=== PATIENT | female | born 1955 ===

== ENCOUNTER 2022-09-06 10:15 | Outpatient (RCR) | payer OTHER, SELFPAY ==
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
[2022-08-16 10:42] VITALS: BP 128/60; PULSE 60; TEMP 37.1
[2022-08-16 10:46] VITALS: BMI 26.9
--- NOTE | 2022-08-16 11:25 | PC.ADMIT ---
Patient self referred to [facility] d/t increased depression, anxiety, and PTSD sxs. Patient reports she heard about the program from a friend. Patient feeling overwhelmed about taking on the care of her elderly mother. Reports a history of substance use. Reports last use ETOH 10 years ago and Opiates 4-5 years ago. Patient is on Suboxone which she takes daily. Patient also reports using a friends Ativan daily taking 0.5-1 mg. Medication education provided to patient regarding use of her friends medication. Patient is alert and oriented x4. Calm and cooperative. Presented with depressed mood and affect. Denied Si or thoughts to harm herself. Patient given a copy of her safety plan if needed and I reviewed the plan with her. Medication reconciled with patient and patient's pharmacy.
[2022-08-16 12:50] LABS: Amphetamine Screen Urine Not Detected (Not Detect); Barbiturates, Urine Not Detected (Not Detect); Benzodiazepines Screen Urine POSITIVE (Not Detect); Cannabinoid Screen Urine Not Detected (Not Detect); Cocaine Screen Urine Not Detected (Not Detect); Fentanyl, urine Not Detected (Not Detect); Opiate Screen Urine Not Detected (Not Detect); Phencyclidine Screen Urine Not Detected (Not Detect)
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
--- NOTE | 2022-08-20 08:10 | HO.PHP ---
The clients case was reviewed and opened in treatment team
--- NOTE | 2022-08-24 10:43 | P.PNPSP_ITS ---
Subjective Subjective Date of Service: 08/24/22 Reason For Visit: PTSD,ADHD Medical Problems Affecting Mental Status: No Interim History: Pt endorses she is still anxious and depressed but with mild improvement. No SI, no saftey concerns Finding groups helpful Medication Compliance: Yes Side effects from medications: No Attending Groups: Yes Review of Systems Acute medical concerns: No Medical Review of Systems: unchanged Review of Systems Review of Systems Yes all other systems are reviewed and are negative Constitutional: Reports no additional constitutional complaints Mental Status Exam Mental Status Exam Narrative: Well-developed, well-nourished, NAD. Patient Appearance: Appropriate Patient Orientation: Person, Place, Time and Situation Level of Consciousness: Appropriate Patient Behavior: Appropriate, Cooperative and Good Eye Contact Mood Description: Depressed and Anxious Affect Description: Anxious Patient Cognition Impaired: No Ability to Follow Directions: Good Speech Pattern: Clear Memory Description: Intact Hallucinations: None Delusions: Not Present Thought Process: Intact Thought Content: positive for Intact, positive for Goal Oriented and positive for Linear Depressive Symptoms: Loss of Int. in Activity, Unhappiness, Increased Fatigue, Low Self Esteem, Loss of Energy and Difficulty Concentrating Judgement: Fair Diagnostics Vital Signs (24Hr): BMI result Body Mass Index 26.9 Assessment & Plan Assessment & Plan (1) Major depressive disorder, recurrent, moderate: Status: Acute Code(s): F33.1 - Major depressive disorder, recurrent, moderate Assessment and Plan: Patient presents with depressed, anxious mood an affect. Willing to consider medications. Interested in ADHD medications, Xanax for anxiety. Describes last prescriber relationship as ?I do not want to talk about it ?. States she has not taken any ADHD medications or been prescribed any benzodiazepines since December 2021. Discussed various medication options, including hydroxyzine, BuSpar own, various SSRIs, SNRIs, clonidine. She reports she has trialed all of these medications, and is not interested in a prescription at this time. States that she has a supply of hydroxyzine at home, although she feels it makes her too tired. We discussed cutting tablet in half. She stated that she would try this. No SI, reports that she feels safe. (2) VIOLETTA (generalized anxiety disorder): Status: Acute Code(s): F41.1 - Generalized anxiety disorder (3) Opioid dependence, uncomplicated: Status: Acute Code(s): F11.20 - Opioid dependence, uncomplicated Assessment and Plan: Satsfied with current subxone dose, denies withdrawls or cravings. reports also helps with chronic pain management (4) ADD (attention deficit disorder): Status: Acute Code(s): F98.8 - Other specified behavioral and emotional disorders with onset usually occurring in childhood and adolescence Plan continue with current [facility] plan of care . Pt not intrested in prescription at this time although will consider this Follow up as per protocol Patient educated on: diagnosis, medication risk/benefits and substance abuse Informed Consent: understands Reason for contiued partial hosp. stay Substantial Risk for: inability to function and rapid decompensation Certification I certify that partial hospital treatment is medically necessary due to the symptoms and problems resulting from the patient's mental illness and the failure to treat the patient at the partial hospital level of care would likely result in the patient requiring inpatient psychiatric care which could not be prevented at a less intensive level of care. Total time managing care of this patient today __20__ minutes. Discharge Plan Discharge Attending provider: Lv Becerra Medications: No Action buprenorphine-naloxone 2-0.5 mg film 1 strip sublingual DAILY
--- NOTE | 2022-08-27 08:34 | PC.NURSE ---
Shena called and left a message stating she was not coming to the program today as she has a Healthy Living Program she attends on Tuesday.
--- NOTE | 2022-08-30 08:36 | PC.NURSE ---
Shena called and left a message stating she does not have a scheduled ride to the program today and she has to take care of some personal matters. [facility] staff is aware.
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
--- NOTE | 2022-09-01 12:02 | P.PNPSP_ITS ---
Subjective Subjective Date of Service: 09/01/22 Reason For Visit: PTSD,ADHD Medical Problems Affecting Mental Status: No Interim History: Describes mood as ?better . Does endorse some symptoms of depression and anxiety, states that the Ativan she is taking helps address these symptoms. No SI, no safety concerns. Requesting Nicorette gum. Reports some stress of being the only caregiver for her mother. Medication Compliance: Yes Side effects from medications: No Attending Groups: Yes Review of Systems Acute medical concerns: No Medical Review of Systems: unchanged Review of Systems Review of Systems Yes all other systems are reviewed and are negative Constitutional: Reports no additional constitutional complaints Mental Status Exam Mental Status Exam Narrative: Well-developed, well-nourished, NAD. Patient Appearance: Appropriate Patient Orientation: Person, Place, Time and Situation Level of Consciousness: Appropriate Patient Behavior: Appropriate, Cooperative and Good Eye Contact Mood Description: Depressed and Anxious Affect Description: Anxious Patient Cognition Impaired: No Ability to Follow Directions: Good Speech Pattern: Clear Memory Description: Intact Hallucinations: None Delusions: Not Present Thought Process: Intact Thought Content: positive for Intact, positive for Goal Oriented and positive for Linear Depressive Symptoms: Loss of Int. in Activity, Unhappiness, Increased Fatigue, Loss of Energy and Difficulty Concentrating Judgement: Fair Diagnostics Vital Signs (24Hr): BMI result Body Mass Index 26.9 Assessment & Plan Assessment & Plan (1) Major depressive disorder, recurrent, moderate: Status: Acute Code(s): F33.1 - Major depressive disorder, recurrent, moderate Assessment and Plan: Reports some improvements, however continues with some depression and anxiety. Currently takes her mother's Ativan, which she states help address these symptoms. We discussed various medication options, including hydroxyzine, antidepressants such as SSRIs, Wellbutrin. She is not interested in any of these medications at this time. No SI, no safety concerns. Plans to resume working with her therapist Maria R Lundberg, once complete program. (2) VIOLETTA (generalized anxiety disorder): Status: Acute Code(s): F41.1 - Generalized anxiety disorder Assessment and Plan: Continues with some anxiety. (3) Opioid dependence, uncomplicated: Status: Acute Code(s): F11.20 - Opioid dependence, uncomplicated Assessment and Plan: Takes Suboxone as directed, no concerns. No cravings, no use. Plan 1. Continue with current [facility] plan of care. 2. Nicotine replacement gum ordered. 3. Follow-up as per protocol. Patient educated on: diagnosis, medication risk/benefits, substance abuse and therapeutic strategies Informed Consent: understands Reason for contiued partial hosp. stay Substantial Risk for: inability to function and rapid decompensation Certification I certify that partial hospital treatment is medically necessary due to the symptoms and problems resulting from the patient's mental illness and the failure to treat the patient at the partial hospital level of care would likely result in the patient requiring inpatient psychiatric care which could not be prevented at a less intensive level of care. Total time managing care of this patient today _20___ minutes. Discharge Plan Discharge Attending provider: Lv Becerra Medications: New nicotine (polacrilex) [Nicorette] 2 mg gum 2 mg buccal Q2H Qty: 110 0RF No Action buprenorphine-naloxone 2-0.5 mg film 1 strip sublingual DAILY
--- NOTE | 2022-09-06 11:34 | HO.PHPPROGNO ---
Subjective Subjective Date of Service: 09/06/22 Reason For Visit: PTSD,ADHD Interim History: less depressed, less anxious. No SI, no safety concerns. Sleep is good, appetite good. Feels stable for discharge from [facility] at this time Attending Groups: Yes Review of Systems Acute medical concerns: No Medical Review of Systems: unchanged Review of Systems Review of Systems Yes all other systems are reviewed and are negative Constitutional: Reports no additional constitutional complaints Mental Status Exam Mental Status Exam Narrative: Well-developed, well-nourished, NAD. Patient Appearance: Appropriate Patient Orientation: Person, Place, Time and Situation Level of Consciousness: Appropriate Patient Behavior: Appropriate, Cooperative and Good Eye Contact Mood Description: Appropriate, Depressed (lessened) and Anxious (lessended) Affect Description: Appropriate Patient Cognition Impaired: No Ability to Follow Directions: Good Speech Pattern: Clear Memory Description: Intact Hallucinations: None Delusions: Not Present Thought Process: Intact Thought Content: positive for Intact, positive for Goal Oriented and positive for Linear Judgement: Good Diagnostics Vital Signs (24Hr): BMI result Body Mass Index 26.9 Assessment & Plan Assessment & Plan (1) Major depressive disorder, recurrent, moderate: Status: Acute Code(s): F33.1 - Major depressive disorder, recurrent, moderate Assessment and Plan: Reports feeling improvement, less depressed, less anxious. No SI. No thoughts of harm to self or others in any way. Has found program helpful. Feels stable for discharge from [facility] at this time. No concerns. (2) VIOLETTA (generalized anxiety disorder): Status: Acute Code(s): F41.1 - Generalized anxiety disorder (3) Opioid dependence, uncomplicated: Status: Acute Code(s): F11.20 - Opioid dependence, uncomplicated Assessment and Plan: On long-term Suboxone therapy, no concerns. Plan 1. Patient appears stable for discharge from [facility] at this time. 2. Patient to follow-up with outpatient providers going forward. Patient educated on: diagnosis and therapeutic strategies Informed Consent: understands Reason for contiued partial hosp. stay Substantial Risk for: stable for discharge Certification I certify that partial hospital treatment is medically necessary due to the symptoms and problems resulting from the patient's mental illness and the failure to treat the patient at the partial hospital level of care would likely result in the patient requiring inpatient psychiatric care which could not be prevented at a less intensive level of care. Total time managing care of this patient today ____ minutes. Discharge Plan Discharge Attending provider: Lv Becerra Additional Instructions: Maria R Gutierrez [facility], Bertha Mike [employer] 09/14 Medications: New nicotine (polacrilex) [Nicorette] 2 mg gum 2 mg buccal Q2H Qty: 110 0RF No Action buprenorphine-naloxone 2-0.5 mg film 1 strip sublingual DAILY Stand Alone Forms: Patient Portal Discharge page Patient Education: Depression (DC)
--- NOTE | 2022-09-06 15:18 | HO.PHP ---
I call the client because she left before lunch. She states that she didn't feel comfortable saying goodbye. She states that she has a therapist and she knows her appointment time with Bertha Mike 09/14. She did not want to be asked the PHQ 9 questions. We talked about ways to get assistance with caring for her mother. I suggested she call [facility] to enquire what they can offer her. She states that she is safe.
--- NOTE | 2022-09-06 15:26 | HO.PHP ---
Called the clients therapist Maria R Gutierrez [facility] re clients dc from the program.
== END 2022-09-06 23:59 | disposition home or self-care (01) ==
LOC: HO.PHPA 10:15
PROVIDERS: Nurse Practitioner Psychiatric/Mental Health; Visit Provider Psychiatry & Neurology Psychiatry
DX: F33.1 Major depressive disorder, recurrent, moderate (principal); F41.1 Generalized anxiety disorder; F43.10 Post-traumatic stress disorder, unspecified; F98.8 Other specified behavioral and emotional disorders with onset usually occurring in childhood and adolescence; F11.20 Opioid dependence, uncomplicated; F10.91 Alcohol use, unspecified, in remission
CPT/HCPCS: 80307; 90791; 90853